=== PATIENT | male | born 1945 | race Caucasian/White ===

== ENCOUNTER 2020-11-10 14:44 | Emergency (ER) | payer MEDICARE, SELFPAY ==
[2020-11-10 14:45] VITALS: BP 139/79; PULSE 64; RESP 18; TEMP 36.1; O2SAT 98; BMI 27.8
--- NOTE | 2020-11-10 15:08 | ED.VISSUMM ---
- ER Visit Summary Date of Service: 11/10/20 Chief Complaint: Right shoulder pain History of Present Illness: The patient is a [address] Samuels. He is right-hand dominant. Reports that last night he was driving his dog jumped on his lap. He had forced external rotation of his right arm to get his dog back on the seat and felt a pop. He went to urgent care and had x-rays that were just read as degenerative changes. He reports that despite that he has sharp pain in his right shoulder that is 10 out of 10 at worst and 2 out of 10 currently. Is worsened by movement. Is relieved by rest and Tylenol. He denies any numbness or weakness. Review of systems: General: No fever, chills, cold sweats. Cardiovascular: No chest pain, palpitations. Respiratory: No cough, shortness of breath, dyspnea on exertion. Gastrointestinal: No abdominal pain, nausea, vomiting, diarrhea, melena, or hematochezia. Genitourinary: No dysuria, frequency, hematuria. Skin: No rash. Neuro: No headache, numbness, weakness. Physical Examination: Vitals: Stable. Afebrile. General: Well-nourished and well-developed. Head: Normocephalic atraumatic. Neck: Supple, no lymphadenopathy. No JVD. Nontender. Cardiovascular: Regular rate and rhythm. No murmurs. Respiratory: No respiratory distress. Clear to auscultation bilaterally. Abdominal: Soft, nontender, nondistended, normal bowel sounds. No guarding, rebound, or peritoneal signs. Back: Nontender. Extremities: Mild tenderness palpation of the anterior surface of his right shoulder. He has pain with abduction active greater than passive. He has moderate pain with external rotation. Is 2+ radial pulse normal sensation light touch. Skin: Normal color, no rash. Neurologic: Alert and oriented ?3. Cranial nerves II through XII are intact. Normal strength and sensation. Psych: Normal affect. Emergency Department Course and Treatment: Patient has a history of a rotator cuff repair on the right previously. His exam and history are consistent with a reinjury of this. He was placed in a sling. Treatment Plan: Patient be discharged Percocet for pain. Instructed to ice the area. Follow-up with the orthopedic surgeon who did his prior rotator cuff and shoulder repair as soon as possible. Return to the emergency department for any worsening symptoms. Disposition: To home in improved and stable condition. Impression: 1. Right shoulder pain, acute. This note was generated with [employer] dictation software. It may contain incorrect words, spelling, and punctuation that were not noted in review of the chart prior to signing ED Disposition - Plan for ED Patient: Disposition: Home or Assisted Living Instructions: ED Rotator Cuff Tear Prescriptions: Oxycodone HCl/Acetaminophen [Percocet 5/325] 1 tab PO Q6H PRN PRN 5 Days #20 tab PRN Reason: Pain Score 6-10 Prescription Printed Additional Instructions: Follow-up with Dr. Rolle as soon as possible.
== END 2020-11-10 15:38 | disposition home or self-care (01) ==
LOC: ED 15:24
PROVIDERS: Emergency Provider Emergency Medicine; PCP Internal Medicine
DX: M25.511 Pain in right shoulder (principal); I25.10 Atherosclerotic heart disease of native coronary artery without angina pectoris; Z79.899 Other long term (current) drug therapy; Z85.46 Personal history of malignant neoplasm of prostate; Z87.891 Personal history of nicotine dependence; Z95.5 Presence of coronary angioplasty implant and graft
CPT/HCPCS: 99282

== ENCOUNTER 2020-12-11 06:41 | Emergency (ER) | payer MEDICARE, SELFPAY ==
[2020-12-11 06:42] VITALS: BP 128/71; PULSE 73; RESP 18; TEMP 35.9; O2SAT 95; BMI 28.0
--- NOTE | 2020-12-11 06:51 | EKG12_ITS ---
Test Reason : CHEST OTHER Blood Pressure : / mmHG Vent. Rate : 062 BPM Atrial Rate : 062 BPM P-R Int : 138 ms QRS Dur : 096 ms QT Int : 402 ms P-R-T Axes : 047 -42 012 degrees QTc Int : 408 ms Normal sinus rhythm Left axis deviation Abnormal ECG Confirmed by TOREY NELSON, MIKE ([id number]), assistant production editor SOPHIE GASCA ([id number]) on 12/13/2020 10:14:58 AM Referred By: MR Confirmed By:MIKE LEMA MD
--- NOTE | 2020-12-11 06:51 | RAD_ITS ---
STUDY: X-RAY CHEST REASON FOR EXAM: Male, 75 years old. chest pain TECHNIQUE: PA and lateral views of the chest. COMPARISON: October 30, 2014 chest x-ray chest x-ray FINDINGS: The lungs are clear and expanded. There is no demonstrated pleural abnormality. Normal size heart. Normal mediastinum and miranda. Normal visualized pulmonary arteries. There is atherosclerotic calcification of the aortic arch with tortuosity. Normal visualized thoracic spine. There are old right-sided rib fractures. There is a left shoulder arthroplasty. There is no demonstrated abnormality of the visualized soft tissue structures of the upper abdomen. RAD/Chest PA and Lateral IMPRESSION: Degenerative changes, as described above. No demonstrated acute cardiopulmonary process. Electronically Signed: Jaclyn Cummins MD at 7:21 EDT Tel , Service support ,
--- NOTE | 2020-12-11 06:53 | ED.VIS.GEN ---
History of Present Illness Chief Complaint: Chest Other Narrative: Patient presenting secondary to chest pain. Patient reports that Friday night he ate something, started to feel ill and then had explosive diarrhea. He reports that lasted throughout the night, and then somewhat resolved throughout the course of the day. Patient states that it now is associated with a generalized ache in his bilateral chest and his upper abdomen that seems to be worse with taking a deep breath. No exertional component to this. He denies any shortness of breath or lightheadedness. No fevers. No history of DVT or PE. Past Medical History - Allergies and Home Meds Allergies/Adverse Reactions: Allergies gabapentin [From Neurontin] Allergy (Verified 12/11/20 06:52) Rash Primary Care Physician: Yolanda Samuels MD [Primary Care Provider] - Prior records reviewed: Yes Past Medical History: - - CAD Surgical History: cholecystectomy Smoking Status: Former smoker Alcohol: None Drugs: None Review of Systems All systems negative except as indicated General: Denies: Chills, Fever, Sweats Eyes: Denies: Visual changes - bilaterally, Diplopia ENT: Denies: Rhinorrhea, Sore throat Cardiovascular: Reports: Chest pain Respiratory: Denies: Dyspnea, Cough, Dyspnea on exertion Gastrointestinal: Reports: Abdominal pain, Diarrhea Genitourinary: Denies: Dysuria, Hematuria, Frequency Musculoskeletal: Denies: Back pain, Extremity Pain Skin: Denies: Rash, Wounds Neurological: Denies: Headache, Weakness, Numbness Physical Exam Vital Signs/Narrative: Vital Signs Temp Pulse Resp BP Pulse Ox 12/11/20 06:42 96.7 F L 73 18 128/71 H 95 Inital Vital Signs reviewed: Yes General: Well nourished, Well developed, No Acute Distress Head: Normocephalic, Atraumatic Eyes: Perrl, EOMI ENT: Moist mucous membranes, No rhinorrhea Neck: Supple, Nontender Cardiovascular: Regular rate, Regular rhythm, Murmur - 2/6, - - 2+ pulses Respiratory: No distress, CTA bilaterally, Chest nontender. Negative for: Chest tenderness Abdomen: Soft, Nontender, Nondistended, Normal bowel sounds Back: Nontender, Normal Inspection Extremities: Nontender, No edema Skin: Normal color, No rash Neurological: Alert, Oriented x3, Cranial nerves II-XII grossly intact, Normal Strength, Normal Sensation Psychological: Normal affect, Normal Mood Diagnostic/Tx/Re-eval Chest X-Ray - ED: 2 View, Read by ED Physician, Chronic Changes Clinical Impression(s) from Imaging Studies Chest X-Ray 12/11/20 06:51 IMPRESSION: Degenerative changes, as described above. No demonstrated acute cardiopulmonary process. Electronically Signed: Jaclyn Cummins MD at 7:21 EDT Tel , Service support , Laboratory Data 12/11/20 12/11/20 12/11/20 07:02 07:02 07:02 WBC 2.8 L RBC 4.30 L Hgb 13.4 Hct 39.7 L MCV 92.3 MCH 31.2 MCHC 33.8 RDW Std Deviation 43.7 RDW Coeff of Uday 12.9 Plt Count 128 L MPV 10.4 Immature Gran % (Auto) 0.400 Neut % (Auto) 53.7 Lymph % (Auto) 30.2 [place] % (Auto) 15.7 H Eos % (Auto) 0.0 Baso % (Auto) 0.0 Absolute Neuts (auto) 1.5 L Absolute Lymphs (auto) 0.85 Nucleated RBC % 0 D-Dimer Quant (PE/DVT) 0.60 H* Sodium 140 Potassium 3.7 Chloride 108 H Carbon Dioxide 26.0 Anion Gap 6 BUN 15 Creatinine 0.76 Estim Creat Clear Calc 56.38 Est GFR (MDRD) Af Amer 129 Est GFR (MDRD) Non-Af 107 BUN/Creatinine Ratio 19.8 Glucose 117 H Calcium 8.5 Total Bilirubin 0.50 AST 28 ALT 30 Alkaline Phosphatase 65 Troponin I < 0.015 Total Protein 7.1 Albumin 3.7 Globulin 3.4 Albumin/Globulin Ratio 1.1 - EKG Initial EKG Interpretation: - - Sinus rhythm at [address] segments normal T waves, left axis deviation no evidence of acute ischemic changes. - Medical Decision Making Patient presented secondary to chest pain. Cardiac work-up was obtained. Chest x-ray by my personal review shows chronic changes. EKG shows no ischemia. Laboratory studies show the patient to have a leukopenia with an elevation of his monocytes no evidence of neutrophilia. Troponin was negative. D-dimer when age-adjusted was found to be negative. Patient has had persistent pain over the course of the last couple of days, I do not feel that this is a cardiac equivalent and with his lymphocyte suppression he likely has an element of a viral illness. He does not seem to have any evidence of what would be coronavirus, he does not have hypoxia or cough or fever. Patient was given reassurance, I recommended conservative management and follow-up with primary care. ED Disposition - Plan for ED Patient: Disposition: Home or Assisted Living Diagnosis: Viral illness Instructions: ED Viral Syndrome (Adult) Referrals: Yolanda Samuels MD [Primary Care Provider] - 3-5 Days
[2020-12-11 07:03] VITALS: O2SAT 99
[2020-12-11 07:12] LABS: Absolute Lymphocyte Count 0.85 X10^3/uL (0.83-4.51); Absolute Neutrophil Count 1.5 X10^3/uL (2.0-7.7); Hematocrit 39.7 % (40-54); Hemoglobin 13.4 g/dL (13.0-16.5); Lymphocyte # 0.85 X10^3/ul (4.0); Lymphocyte % 30.2 % (19-41); Mean Corp Hgb Conc 33.8 g/dL (32-36); Mean Corpuscular Hgb 31.2 pg (27.0-32.0); Mean Corpuscular Volume 92.3 fL (80-94); Mean Platelet Vol. 10.4 fl (6.2-12.0); Monocyte# 0.44 X10^3/uL; Monocyte% 15.7 % (0-10); NRBC Flagged by Analyzer 0 % (0-5); Neutrophil # 1.51 X10^3/uL (2.7-7.7); Neutrophil % 53.7 % (47-70); Platelet Count 128 K/mm3 (150-450); RBC Distribution Width CV 12.9 % (11.6-14.6); RBC Distribution Width SD 43.7 fl (35.1-43.9); White Blood Count 2.8 K/mm3 (4.4-11.0)
[2020-12-11 07:34] LABS: ALB/GLOB Ratio 1.1 RATIO (0.9-2.4); AST(SGOT) 28 U/L (15-37); Alanine Aminotransfer ALT/SGPT 30 U/L (16-61); Albumin, Serum 3.7 g/dL (3.2-5.0); Alkaline Phosphatase 65 U/L (45-117); Anion Gap 6 (5-15); BUN 15 mg/dL (7-18); BUN/Creat Ratio 19.8 RATIO (10-20); Calcium,Total 8.5 mg/dL (8.5-10.1); Chloride 108 mmol/L (98-107); Creatinine, Serum 0.76 mg/dL (0.70-1.30); EST Glomerular Filtration Rate 107 mL/min (>60); Est Glom Filt Rate - Afr Amer 129 mL/min (>60); Estimated Creatinine Clearance 56.38 ml/min; Globulin 3.4 g/dL (2.2-4.2); Glucose 117 mg/dL (74-106); Potassium 3.7 mmol/L (3.5-5.1); Protein, Total 7.1 g/dL (6.4-8.2); Sodium Level 140 mmol/L (136-145)
[2020-12-11 07:49] VITALS: BP 112/73; PULSE 61; RESP 23; O2SAT 98
== END 2020-12-11 07:49 | disposition home or self-care (01) ==
PROVIDERS: Emergency Provider Emergency Medicine; PCP Internal Medicine
DX: B34.9 Viral infection, unspecified (principal); R07.9 Chest pain, unspecified; R19.7 Diarrhea, unspecified; I25.10 Atherosclerotic heart disease of native coronary artery without angina pectoris; Z79.899 Other long term (current) drug therapy; Z87.891 Personal history of nicotine dependence
CPT/HCPCS: 71046; 80053; 84484; 85025; 85379; 93005; 99284; A4216

== ENCOUNTER 2023-04-06 05:05 | Emergency (ER) | payer MEDICARE, SELFPAY ==
[2023-04-06 05:05] VITALS: BP 151/98; PULSE 60; RESP 14; TEMP 36.4; O2SAT 100; BMI 27.1
[2023-04-06 05:15] VITALS: O2SAT 96
--- NOTE | 2023-04-06 05:15 | EKG12_ITS ---
Test Reason : CP Blood Pressure : / mmHG Vent. Rate : 062 BPM Atrial Rate : 062 BPM P-R Int : 172 ms QRS Dur : 084 ms QT Int : 410 ms P-R-T Axes : 021 -38 003 degrees QTc Int : 416 ms Sinus rhythm with Premature supraventricular complexes Left axis deviation Abnormal ECG Confirmed by ARIANNA NELSON, OLI ([id number]), editorial director SOPHIE GASCA ([id number]) on 04/07/2023 12:41:28 P M Referred By: TATIANA Confirmed By:TASHI KELLER MD
--- NOTE | 2023-04-06 05:16 | ED.VIS.CHEST ---
HPI History of Present Illness Chief Complaint: Chest Pain Narrative Narrative: Patient presents with burping. He is worried about his heart since in 2006 he had an heart attack and at that time he was trying to burp but could not. Now he is burping and wants to make sure that he is not having a heart attack he has been burping since last night. He has no current chest pain. He has no back pain. No pleuritic component. No recent fevers or chills. He has no lower extremity edema or calf pain. [facility] Medical History (Updated 04/06/23 @ 05:[address] Keon Velazquez MD) Chest pain Hernia Myocardial infarct Prostate cancer Home Medications atorvastatin 10 mg tablet 10 mg PO QHS 11/19/14 [History Last Taken Unknown] metoprolol tartrate 25 mg tablet 25 mg PO DAILY 11/19/14 [History Last Taken Unknown] lansoprazole 30 mg capsule,delayed release 30 mg PO DAILY 12/11/20 [History Last Taken Unknown] aspirin 81 mg chewable tablet (Juan Chewable Low Dose Aspirin) 1 tab PO DAILY 04/06/23 [History Last Taken Unknown] hydroxychloroquine 200 mg tablet (Plaquenil) 100 mg PO QHS 04/06/23 [History Last Taken Unknown] hydroxychloroquine 200 mg tablet (Plaquenil) 200 mg PO DAILY 04/06/23 [History Last Taken Unknown] hydroxychloroquine 200 mg tablet (Plaquenil) 200 mg PO DAILY 04/06/23 [History Last Taken Unknown] lisinopril 2.5 mg tablet 2.5 mg PO DAILY 04/06/23 [History Last Taken Unknown] multivitamin 1 tab PO DAILY 04/06/23 [History Last Taken Unknown] vitamin B complex 1 cap PO DAILY 04/06/23 [History Last Taken Unknown] Allergy/AdvReac Type Severity Reaction Status Date / Time gabapentin [From Neurontin] Allergy Rash Verified 12/11/20 06:52 Surgical History (Updated 04/06/23 @ 05:10 by Dorothy Eid) History of cholecystectomy History of cholecystectomy History of coronary artery stent placement Shoulder joint replacement status Social History Smoking Status: Former smoker ROS ROS ED ROS Narrative Past medical history: Reviewed Medications: Reviewed Social history: Noncontributory Review of systems: All systems negative except as indicated General: No fever Eyes: No visual changes ENT: No upper airway congestion, normal voice Neck: No neck pain Cardiovascular: No chest pain Respiratory: No shortness of breath or cough. Gastrointestinal: No abdominal pain, nausea vomiting or diarrhea. He is burping. But he does not have any epigastric pain. Genitourinary: No dysuria Musculoskeletal: Denies myalgias no difficulty with ambulation Skin: No rash Neurological: No memory loss, confusion or any focal weakness EXAM Physical Exam Narrative Exam Narrative: Physical exam General: Well nourished, Well developed, No Acute Distress Head: Normocephalic, Atraumatic Eyes: Conjunctiva not pale ENT: Moist mucous membranes Neck: Supple, Nontender, No lymphadenopathy Cardiovascular: Regular rate, Regular rhythm Respiratory: No distress, CTA bilaterally Abdomen: Soft, Nontender, Nondistended Back: Nontender, Normal Inspection. Negative for: CVA tenderness Extremities: Nontender, No edema Skin: Normal color, No rash Neurological: Alert, Normal Strength, Normal Sensation Psychological: Normal affect Const Vital Signs: 04/06/23 05:05 04/06/23 05:15 04/06/23 05:30 Temperature 97.5 F L Temperature Source Temporal Pulse Rate 60 Respiratory Rate 14 Respiratory Effort Normal Non-Labored Blood Pressure 151/98 H Blood Pressure Mean 115 Pulse Ox 100 96 Oxygen Delivery Method Room Air Room Air MDM MDM MDM Narrative Medical decision making narrative: Interpretation of test EKG: Sinus rhythm with a rate of 62. Normal [place] and QTc intervals. No ischemic changes Interpreted by emergency doctor Telemetry: Sinus rhythm with a rate in the 60s with some PVCs. Chest x-ray: No acute abnormality read by me MDM: I thought about PE however patient has no risk factors and a normal heart rate. I thought about pneumothorax however this is not found on x-ray. I thought about ACS however I was able to rule him out for ACS according to our hospital guidelines. He has no pneumonia on x-ray. He appears well. He is reassured and I believe he can be safely discharged home. He is pending his second troponin and if this is normal he will be going home. Lab Data Labs: Laboratory Results - last 24 hr 04/06/23 05:10 WBC 5.8 RBC 3.94 L Hgb 12.2 L Hct 37.7 L MCV 95.7 H MCH 31.0 MCHC 32.4 RDW Std Deviation 44.4 H RDW Coeff of Uday 12.5 Plt Count 176 MPV 10.2 Immature Gran % (Auto) 0.300 Neut % (Auto) 58.1 Lymph % (Auto) 25.2 [place] % (Auto) 13.3 H Eos % (Auto) 2.4 Baso % (Auto) 0.7 Absolute Neuts (auto) 3.4 Absolute Lymphs (auto) 1.46 Nucleated RBC % 0 Sodium 139 Potassium 3.8 Chloride 108 H Carbon Dioxide 27.0 Anion Gap 4 L BUN 22 H Creatinine 0.74 Estim Creat Clear Calc 54.67 Est GFR (MDRD) Af Amer 132 Est GFR (MDRD) Non-Af 109 BUN/Creatinine Ratio 29.7 H Glucose 103 Calcium 8.8 Troponin I High Sens 7 Radiography Diagnostic Testing: Clinical Impression(s) from Imaging Studies Chest X-Ray 04/06/23 05:25 IMPRESSION: No acute cardiopulmonary abnormality. Electronically Signed: Pascual Lozano MD at 5:36 EDT , Discharge Plan Triage Chief Complaint: Chest Pain ED Provider: Keon Velazquez Dx/Rx/DC Orders Clinical Impression: History of acquired heart disease, Chest pain Prescriptions: No Action metoprolol tartrate 25 MG tablet 25 mg PO DAILY atorvastatin 10 MG tablet 10 mg PO QHS lansoprazole 30 MG capsule 30 mg PO DAILY hydroxychloroquine [Plaquenil] 200 mg tablet 200 mg PO DAILY hydroxychloroquine [Plaquenil] 200 mg tablet 200 mg PO DAILY hydroxychloroquine [Plaquenil] 200 mg tablet 100 mg PO QHS aspirin [Juan Chewable Aspirin] 81 mg tablet,chewable 1 tab PO DAILY lisinopril 2.5 mg tablet 2.5 mg PO DAILY multivitamin Tablet 1 tab PO DAILY vitamin B complex Capsule 1 cap PO DAILY Primary Care Provider: FREDDY PACK Referrals: Yolanda Samuels MD [Med Staff - Conference Director] - 3-5 Days Disposition Disposition: Home, Self Care
[2023-04-06 05:23] LABS: Absolute Lymphocyte Count 1.46 X10^3/uL (0.83-4.51); Absolute Neutrophil Count 3.4 X10^3/uL (2.0-7.7); Basophil# 0.04 X10^3/uL; Basophil% 0.7 % (0-1); Eosinophil# 0.14 X10^3/uL; Eosinophils% 2.4 % (0-5); Hematocrit 37.7 % (40-54); Hemoglobin 12.2 g/dL (13.0-16.5); Lymphocyte # 1.46 X10^3/ul (0.83-4.51); Lymphocyte % 25.2 % (19-41); Mean Corp Hgb Conc 32.4 g/dL (32-36); Mean Corpuscular Volume 95.7 fL (80-94); Mean Platelet Vol. 10.2 fl (6.2-12.0); Monocyte# 0.77 X10^3/uL; Monocyte% 13.3 % (0-10); NRBC Flagged by Analyzer 0 % (0-5); Neutrophil # 3.36 X10^3/uL (2.7-7.7); Neutrophil % 58.1 % (47-70); Platelet Count 176 K/mm3 (150-450); RBC Distribution Width CV 12.5 % (11.6-14.6); RBC Distribution Width SD 44.4 fl (35.1-43.9); Red Blood Count 3.94 M/mm3 (4.6-6.2); White Blood Count 5.8 K/mm3 (4.4-11.0)
--- NOTE | 2023-04-06 05:25 | RAD_ITS ---
EXAM: XR CHEST, 1 VIEW CLINICAL INDICATION: chest pain TECHNIQUE: Frontal view of the chest. COMPARISON: 12/11/2020. FINDINGS: LUNGS AND PLEURAL SPACES: Unremarkable. No consolidation or edema. No pneumothorax. No effusion. HEART: Unremarkable. Cardiac silhouette not enlarged. MEDIASTINUM: Central airways and mediastinal contour are unremarkable. BONES/JOINTS: Left total shoulder arthroplasty. Components appear well seated. SOFT TISSUES: Unremarkable. RAD/Chest 1 View (Portable) IMPRESSION: No acute cardiopulmonary abnormality. Electronically Signed: Pascual Lozano MD at 5:36 EDT ,
[2023-04-06] MEDS: Aspirin 81 MG TAB.CHEW 324 MG PO (05:29)
[2023-04-06 05:43] LABS: Anion Gap 4 (5-15); BUN 22 mg/dL (7-18); BUN/Creat Ratio 29.7 RATIO (10-20); Calcium,Total 8.8 mg/dL (8.5-10.1); Chloride 108 mmol/L (98-107); Creatinine, Serum 0.74 mg/dL (0.70-1.30); EST Glomerular Filtration Rate 109 mL/min (>60); Est Glom Filt Rate - Afr Amer 132 mL/min (>60); Estimated Creatinine Clearance 54.67 ml/min; Glucose 103 mg/dL (74-106); Potassium 3.8 mmol/L (3.5-5.1); Sodium Level 139 mmol/L (136-145); Troponin-I HS (w/2H Reflex) 7 pg/mL (3.0-78.0)
[2023-04-06 06:05] VITALS: BP 116/66; PULSE 53; RESP 10; O2SAT 97
[2023-04-06 07:05] VITALS: BP 128/79; PULSE 76; TEMP 36.6
[2023-04-06 07:21] LABS: Reflex Troponin-HS? (from REC) Y
[2023-04-06 07:22] LABS: Troponin-I HS 6 pg/mL (3.0-78.0)
[2023-04-06 07:56] LABS: Troponin-I HS 6 pg/mL (3.0-78.0)
[2023-04-06 08:00] VITALS: BP 134/78; PULSE 79; RESP 14; TEMP 36.4; O2SAT 100
== END 2023-04-06 08:09 | disposition home or self-care (01) ==
PROVIDERS: Emergency Provider Emergency Medicine; PCP Nurse Practitioner; Visit Provider Emergency Medicine
DX: R14.2 Eructation (principal); I25.2 Old myocardial infarction; Z87.891 Personal history of nicotine dependence; Z79.899 Other long term (current) drug therapy; Z95.5 Presence of coronary angioplasty implant and graft
CPT/HCPCS: 71045; 80048; 84484; 85025; 93005; 99284; A4216